=== PATIENT | female | born 1990 | race Caucasian/White ===

== ENCOUNTER 2022-01-13 10:22 | Emergency (ER) | payer OTHER ==
[~2022-01-13] VITALS: Ht 170.2 cm; Wt 74.8 kg
[2022-01-13] MEDS ORDERED: SODIUM CHLORIDE 0.9% 1,000 ML IV ONE (11:00)
[2022-01-13] MEDS ORDERED: methylPREDNISolone SOD SUCC 125 MG/2 ML VL IV ONE (11:00)
[2022-01-13 11:25] VITALS: BP 126/71
[2022-01-13] MEDS ORDERED: OSEL75CA5 PO (11:45)
[2022-01-13] MEDS ORDERED: PRED20TA2 PO (11:49)
[2022-01-13] MEDS ORDERED: BENZ100C19 PO (11:49)
== END 2022-01-13 12:26 | disposition home or self-care (01) ==
LOC: EEVIPCON 10:22 → ER 10:22
DX: J10.1 Influenza due to other identified influenza virus with other respiratory manifestations (principal); Z20.822 Contact with and (suspected) exposure to COVID-19
CPT/HCPCS: 71046; 87804; 96361; 96374; 99284; C9803; J2930; J7030; U0003